=== PATIENT | female | born 2000 | race Caucasian/White ===

== ENCOUNTER → 2023-05-08 11:28 | Outpatient (CLI) | payer OTHER, SELFPAY ==
[2023-05-08 12:58] LABS: Hemoglobin A1C% w Est Avg Glu 5.5 % (4.0-6.0)
[2023-05-08 13:18] LABS: Prolactin 9.8 ng/mL (3.0-18.6)
[2023-05-08 13:35] LABS: Testosterone 32.1 ng/dL (5.71-77.0)
[2023-05-08 14:08] LABS: Thyroid Stimulating Hormone 2.21 uIU/mL (0.47-4.68)
[2023-05-14 23:36] LABS: Anti Mullerian Hormone 3.86 ng/mL (.)
== END ==
PROVIDERS: PCP Physician Assistant Medical; Referring Provider Student in an Organized Health Care Education/Training Program; Visit Provider Student in an Organized Health Care Education/Training Program
DX: N97.0 Female infertility associated with anovulation (principal)
CPT/HCPCS: 36415; 82397; 82627; 83036; 84146; 84403; 84443

== ENCOUNTER 2023-05-26 07:50 | Day surgery (SDC) | payer OTHER, SELFPAY ==
[2023-05-15 07:14] VITALS: BMI 47.8
--- NOTE | 2023-05-26 | PATH_ITS ---
[facility] Accession Number: [id number] No. of containers..01 Tissue . 01 Material submitted: . endometrium - ENDOMETRIAL CURETINGS . 01 Diagnosis: ENDOMETRIAL CURETTINGS: Portions of disordered proliferative endometrium; negative for glandular hyperplasia, cytologic atypia, or malignancy. Some endometrial fragments demonstrate prominent vessels, suggestive of polyp, if clinical and imaging studies are concordant. Fragments of myometrium with no significant atypia. MRV 05/29/2023 1613 Local . 01 Electronically signed: . Nat Miles MD, Pathologist NPI- [id number] . 01 Gross description: . ENDOMETRIAL CURETINGS: Received in formalin are minute fragments of mucoid and hemorrhagic material measuring 2.0 x 2.0 x 0.4 cm in aggregate. Submitted in toto in 1 cassette. /ANIL 05/27/2023 1903 Local . 01 Pathologist provided ICD-10: N85.00 . 01 CPT . 748726 Specimen Comment: A courtesy copy of this report has been sent to [facility] Performed at: 01 [facility] [address] [place] [address], [place], [place] [id number] MD Sathish German MD Phone: [phone]
[2023-05-26 08:26] VITALS: BMI 47.8
[2023-05-26 08:45] VITALS: BP 119/81; PULSE 84; RESP 16; TEMP 36.5; O2SAT 96
[2023-05-26] MEDS: LACTATED RINGERS 1,000 ML 42 ML IV (08:49)
--- NOTE | 2023-05-26 09:11 | PM.PREOP ---
Pre-operative Note Interval Note History & Physical reviewed/Exam performed by Physician: Yes Changes to H&P: No H&P completed within 30 days and has changed as indicated here:: see note from 05/08/23
--- NOTE | 2023-05-26 09:51 | SUR.OPER ---
Lithotomy on padded OR bed, head on pillow, arms secured on padded arm boards at <90 degrees abduction. Legs secured in padded yellow fins stirrups.
--- NOTE | 2023-05-26 10:21 | PM.OP.1 ---
Operative Date/Time/Diagnoses Date of procedure: 05/26/23 Time of procedure: 09:45 Pre-op diagnosis: Endometrial polyp Post-op diagnosis: same Procedure & Clinicians Procedure: Hysteroscopic polypectomy Same procedure as scheduled: Yes Indications: 22yo G0 with hx of irregular bleeding and [facility] of [facility] year showed a 2.2 cm endometrial polyp, as well as polycystic ovaries. Surgeon: Mary Spear Click Yes if Unassisted: Yes Anesthesia Type: MAC +/- and Sedation Operative Notes Findings: Uterine cavity with small 1-2cm polyp on the posterior uterine wall. Bilateral tubal ostia visualized. Otherwise normal appearing endometrial cavity. Specimen(s): other (endometrial curettings) Estimated Blood Loss (mL): 5 Blood products transfused: none Procedure in detail: The risks, benefits, indications and alternatives of the procedure were reviewed with the patient and informed consent was obtained. The pt was taken to the operating room where anesthesia with LMA was obtained without difficulty. The pt was then placed in the low lithotomy position using gel-padded Wilfredo stirrups. Sequential compression devices were placed bilaterally for VTE prophylaxis. The pt was then prepped and draped in the sterile fashion. A sterile speculum was placed in the patient?s vagina and the cervix was visualized. A single tooth tenaculum was used to grasp the anterior lip of the cervix. The cervix was then gently, dilated to a size 8 Hegar dilator. The operative hysteroscope was first primed and pressure set. The operative hysteroscope was then advanced through the endocervical canal under direct visualization. The uterus was distended with warm saline, and notable for the above findings. The Myosure Reach was then inserted into the operative hysteroscope. The polypoid tissue on the posterior uterine wall was resected, and global endometrial sampling was performed. The operative hysteroscope was then removed under direct visualization. Tissue obtained was sent to pathology for review. The single tooth tenaculum was removed from the anterior lip of the cervix. The tenaculum site was noted to be hemostatic after direct pressure was applied. All instruments were then removed from the patient?s vagina. Hysteroscopic fluid deficit was 270cc of normal saline. The patient tolerated the procedure well. At the completion of the case the sponge and needle counts were correct x 2. The patient was taken to the PACU in stable condition. Complications: none Post-operative Condition: stable Disposition: PACU Plan for aftercare: Discharge to home once patient is meeting all discharge criteria.
[2023-05-26 10:43] VITALS: BP 118/79; PULSE 66; RESP 16; TEMP 36.2; O2SAT 98
[2023-05-26 10:47] VITALS: BP 116/78; PULSE 70; RESP 15; O2SAT 96
[2023-05-26 10:52] VITALS: BP 119/83; PULSE 57; RESP 18; O2SAT 96
[2023-05-26] MEDS: OXYCODONE IR 5 MG TABLET PO (10:54)
[2023-05-26 10:59] VITALS: BP 124/71; PULSE 56; RESP 19; TEMP 36.4; O2SAT 96
[2023-05-26 11:19] VITALS: BP 121/75; PULSE 63; RESP 12; O2SAT 100
== END 2023-05-26 11:41 | disposition home or self-care (01) ==
PROVIDERS: PCP Physician Assistant Medical; Referring Provider Student in an Organized Health Care Education/Training Program; Visit Provider Student in an Organized Health Care Education/Training Program
PROC: 0UDB8ZZ Extraction of Endometrium, Via Natural or Artificial Opening Endoscopic (ICD-10-PCS; CPT 58558; principal; 2023-05-26 09:15)
DX: N84.0 Polyp of corpus uteri (principal)
CPT/HCPCS: 58558; J1100; J1885; J2405; J2704; J3010